=== PATIENT | male | born 1945 | race Caucasian/White ===

== ENCOUNTER 2017-03-01 10:05 | Day surgery (SDC) | payer OTHER ==
[2017-03-01] MEDS ORDERED: Lactated Ringer's 500 ML IV ONE (10:46)
[2017-03-01] MEDS ORDERED: Propofol 10 mg/ml Inj (20 ML) ONE (13:40)
[2017-03-01 13:59] VITALS: TEMP 97; O2SAT 98
[2017-03-01 14:20] VITALS: BP 108/68; PULSE 59; RESP 16
== END 2017-03-01 14:45 | disposition home or self-care (01) ==
LOC: H.ENDO 10:05
PROVIDERS: ATTEND Internal Medicine Gastroenterology
DX: Z85.038 Personal history of other malignant neoplasm of large intestine (principal); E11.9 Type 2 diabetes mellitus without complications; E78.5 Hyperlipidemia, unspecified; I10 Essential (primary) hypertension; K64.8 Other hemorrhoids; K57.30 Diverticulosis of large intestine without perforation or abscess without bleeding
CPT/HCPCS: 82948; G0105; J2001; J2704; J7120

== ENCOUNTER 2018-12-03 06:19 | Inpatient (IN) | payer MEDICARE, MEDICAID ==
[2018-12-03 06:32] VITALS: BMI 31.3
[2018-12-03] MEDS ORDERED: Lactated Ringer's 1,000 ML IV ONE ×3 (07:18→09:00)
[2018-12-03] MEDS ORDERED: Rocuronium 10 mg/ml (5 ml) ONE ×2 (07:25→09:04)
[2018-12-03] MEDS ORDERED: Propofol 10 mg/ml Inj (20 ML) ONE (07:25)
[2018-12-03] MEDS ORDERED: Succinylcholine 200 mg/10 ml Inj IV ONE (07:26)
[2018-12-03] MEDS ORDERED: Lidocaine 4% (Laryng-O-Jet) Kit MM ONE (07:26)
[2018-12-03] MEDS ORDERED: Etomidate 20 mg/10ml Inj IV ONE (07:26)
[2018-12-03] MEDS ORDERED: Phenylephrine 10 mg/ml Inj ONE (07:30)
[2018-12-03] MEDS ORDERED: Dexamethasone 4 mg/1 ml ONE (07:31)
[2018-12-03] MEDS ORDERED: Sodium Chloride 0.9% 20 ML IV ONE (08:00)
[2018-12-03] MEDS ORDERED: Bacitracin Ointment 30 GM TUBE ONE (08:00)
[2018-12-03] MEDS ORDERED: Absorbable Gelatin Sponge Size 12-7 ONE (08:00)
[2018-12-03] MEDS ORDERED: Thrombin Topical 5,000 Int Units Spray Kit ONE (08:01)
[2018-12-03] MEDS ORDERED: Acetaminophen IV 1,000 MG in IV SUPPLIES 100 ML IVPB ONE (08:09)
[2018-12-03] MEDS ORDERED: Midazolam 2 MG/2 ML VIAL ONE (08:12)
[2018-12-03] MEDS: Bupivacaine 0.5% Inj(30mL) ONE ×2 (09:00→09:48)
[2018-12-03] MEDS: EPINEPHrine 1 mg/ml (1:1000) Inj ONE ×2 (09:01→09:48)
[2018-12-03] MEDS: Morphine 5 mg/10 ml preservative-free Inj(Duramorph) ONE ×2 (09:03→09:48)
[2018-12-03] MEDS ORDERED: [UNRECOGNIZED DRUG - OTHER] IV ONE ×2 (09:05→09:48)
[2018-12-03] MEDS ORDERED: SODIUM CHLORIDE IV ONE ×2 (09:05→09:48)
[2018-12-03] MEDS ORDERED: Neostigmine 1:1000 (1 mg/ml) Inj ONE (10:09)
[2018-12-03] MEDS ORDERED: HYDROmorphone 0.5 mg/0.5 ml ISec IVP PRN (10:37)
--- NOTE | 2018-12-03 11:30 | PCM.SURG1 ---
Surgeon's Initial Post Op Note - Surgeon's Notes Surgeon: Shea Breen MD Kiln Puller: Chely Rios PA-C; DON Fernando; Fan Dotson DPM Type of Anesthesia: General Endo Pre-Operative Diagnosis: Right knee advanced OA Operative Findings: see op report Post-Operative Diagnosis: same as pre-op dx Operation Performed: R TKR Specimen/Specimens Removed: right knee bone and soft tissue Estimated Blood Loss: EBL {In ML}: 50 Date of Surgery/Procedure: 12/03/18 Time of Surgery/Procedure: 08:30
[2018-12-03] MEDS ORDERED: oxyCODONE 5 mg Immediate Release Tab PO PRN (11:41)
--- NOTE | 2018-12-03 13:15 | RAD ---
Date of service: 12/03/2018 PROCEDURE: Right Knee Radiographs. HISTORY: s/p right TKR COMPARISON: None. TECHNIQUE: 2 views obtained. FINDINGS: BONES: Status post right total knee replacement. No fracture. Prosthesis grossly intact. JOINTS: Normal. No osteoarthritis. JOINT EFFUSION: None. OTHER FINDINGS: Postoperative surgical changes noted in anterior soft tissues. Surgical ajith noted anteriorly in the midline. IMPRESSION: Status post right TKR.
[2018-12-03] MEDS ORDERED: ceFAZolin 1 GM in Sodium Chloride 0.9% 100 ML IVPB ONE ×2 (14:30→20:30)
--- NOTE | 2018-12-03 15:51 | CP.PCM.CON ---
History of Present Illness - History of Present Illness History of Present Illness: I was asked to see patient by Dr Rodriguez and Dr Breen. Patient seen 12/03/18 1052. Patient is a 73 year old male with HTN, hyperchoelsterolemia atrial fibrillation who presents with oasteoarthritis. He is s/p TKR. He is seen postoperatively and doing well. He has chronic atrial fibrillation and has been on Xarelto. He denies chest pain. Review of Systems - Constitutional Constitutional: absent: As Per HPI, Anorexia, Chills, Daytime Sleepiness, Excessive Sweating, Fatigue, Fever, Frequent Falls, Headache, Increased Appetite, Lethargy, Malaise, Night Sweats, Snoring, Sleep Apnea, Weight Gain, Weight Loss, Weakness, Other - EENT Eyes: absent: As Per HPI, Blind Spots, Blurred Vision, Change in Vision, Decreased Night Vision, Diplopia, Discharge, Dry Eye, Exophthalmos, Floaters, Irritation, Itchy Eyes, Loss of Peripheral Vision, Pain, Photophobia, Requires Corrective Lenses, Sees Flashes, Spots in Vision, Tunnel Vision, Other Visual Disturbances, Loss of Vision, Other Ears: absent: As Per HPI, Decreased Hearing, Ear Discharge, Ear Pain, Tinnitus, Abnormal Hearing, Disequilibrium, Dizziness, Other Nose/Mouth/Throat: absent: As Per HPI, Epistaxis, Nasal Congestion, Nasal Discharge, Nasal Obstruction, Nasal Trauma, Nose Pain, Post Nasal Drip, Sinus Pain, Sinus Pressure, Bleeding Gums, Change in Voice, Dental Pain, Dry Mouth, Dysphagia, Halitosis, Hoarsness, Lip Swelling, Mouth Lesions, Mouth Pain, Odynophagia, Sore Throat, Throat Swelling, Tongue Swelling, Facial Pain, Neck Pain, Neck Mass, Other - Cardiovascular Cardiovascular: absent: As Per HPI, Acrocyanosis, Chest Pain, Chest Pain at Rest, Chest Pain with Activity, Claudication, Diaphoresis, Dyspnea, Dyspnea on Exertion, Edema, Irregular Heart Rhythm, Pain Radiating to Arm/Neck/Jaw, Leg Edema, Leg Ulcers, Lightheadedness, Orthopnea, Palpitations, Paroxysmal N octurnal Dyspnea, Pedal Edema, Radiating Pain, Rapid Heart Rate, Slow Heart Rate, Syncope, Other - Respiratory Respiratory: absent: As Per HPI, Cough, Dyspnea, Hemoptysis, Dyspnea on Exertion, Wheezing, Snoring, Stridor, Pain on Inspiration, Chest Congestion, Excessive Mucous Production, Change in Mucous Color, Pain with Coughing, Other - Gastrointestinal Gastrointestinal: absent: As Per HPI, Abdominal Pain, Belching, Bloating, Change in Bowel Habits, Change in Stool Character, Coffee Ground Emesis, Constipation, Cramping, Diarrhea, Dyspepsia, Dysphagia, Early Satiety, Excessive Flatus, Fecal Incontinence, Heartburn, Hematemesis, Hematochezia, Loose Stools, Melena, Nausea, Odynophagia, Temesmus, Vomiting, Other - Genitourinary Genitourinary: absent: As Per HPI, Change in Urinary Stream, Difficulty Urinating, Dysuria, Flank Pain, Hematuria, Pyuria, Nocturia, Urinary Incon tinence, Urinary Frequency, Urinary Hesitance, Urinary Urgency, Voiding Freq/Small Amts, Freq UTI, Hx Renal/Bladder Calculi, Hx /Renal Surgery, Bladder Distension, Other - Musculoskeletal Musculoskeletal: absent: As Per HPI, Abnormal Gait, Arthralgias, Atrophy, Back Pain, Deformity, Joint Swelling, Limited Range of Motion, Loss of Height, Muscle Cramps, Muscle Weakness, Myalgias, Neck Pain, Numbness, Radiating Pain into Limb, Stiffness, Tingling, Other - Integumentary Integumentary: absent: As Per HPI, Acne, Alopecia, Bleeding Lesions, Change in Hair, Change in Nails, Change in Pigmentation, Changing Lesions, Dry Skin, Erythema, Furuncle, Hirsutism, Lesions, New Lesions, Non-Healing Lesions, Photosensitivity, Pruritus, Rash, Skin Pain, Skin Ulcer, Sores, Striae, Swelling, Unusual Bruising, Wounds, Jaundice, Other - Neurological Neurological: absent: As Per HPI, Abnormal Gait, Abnormal Hearing, Abnormal Movements, Abnormal Speech, Behavioral Changes, Burning Sensations, Confusion, Convulsions, Disequilibrium, Dizziness, Numbness, Focal Weakness, Frequent Falls, Headaches, Lack of Coordination, Loss of Vision, Memory Loss, Paresthesias, Radicular Pain, Restless Legs, Sensory Deficit, Syncope, Tingling, Tremor, Vertigo, Weakness, Other Visual Disturbances, Other - Psychiatric Psychiatric: absent: As Per HPI, Abnormal Sleep Pattern, Anhedonia, Anxiety, Auditory Hallucinations, Behavioral Changes, Change in Appetite, Change in Libido, Confusion, Depression, Difficulty Concentrating, Hallucinations, Homicidal Ideation, Hopelessness, Irritability, Memory Loss, Mood Swings, Panic Attacks, Paranoia, Suicidal Ideation, Visual Hallucinations, Tactile Hallucinations, Other - Endocrine Endocrine: absent: As Per HPI, Change in Body Appearance, Change in Libido, Cold Intolorance, Deepening of Voice, Excessive Sweating, Fatigue, Flushing, Heat Intolorance, Increase in Ring/Shoe/Hat Size, Palpitations, Polydipsia, Polyphagia, Polyuria, Other - Hematologic/Lymphatic Hematologic: absent: As Per HPI, Easy Bleeding, Easy Bruising, Lymphadenopathy, Other Past Patient History - Past Medical History & Family History Past Medical History?: Yes - Past Social History Smoking Status: Never Smoked - CARDIAC Hx Cardiac Disorders: Yes Hx Angina: No Hx Cardia Arrhythmia: Yes Hx Circulatory Problems: No Hx Hypertension: Yes - PULMONARY Hx Respiratory Disorders: No - NEUROLOGICAL Hx Neurological Disorder: No HX Cerebrovascular Accident: No Other/Comment: Rt.LE numbness & tingling - HEENT Hx HEENT Problems: Yes Hx Cataracts: Yes - RENAL Hx Chronic Kidney Disease: No - ENDOCRINE/METABOLIC Hx Endocrine Disorders: Yes Hx Diabetes Insipidus: Yes Hx Diabetes Mellitus Type 2: Yes - HEMATOLOGICAL/ONCOLOGICAL Hx Blood Disorders: No Hx Cancer: Yes (COLON) Hx Chemotherapy: Yes (RADIATION THERAPY) - INTEGUMENTARY Hx Dermatological Problems: No - MUSCULOSKELETAL/RHEUMATOLOGICAL Hx Musculoskeletal Disorders: Yes Hx Arthritis: Yes Hx Falls: Yes Other/Comment: Rt.LE limited joint motion - GASTROINTESTINAL Hx Gastrointestinal Disorders: No Hx Bowel Surgery: Yes Hx Colostomy: Yes (AND REVERSAL) - GENITOURINARY/GYNECOLOGICAL Hx Genitourinary Disorders: No - PSYCHIATRIC Hx Emotional Abuse: No Hx Physical Abuse: No - SURGICAL HISTORY Hx Surgeries: Yes Hx Tonsillectomy: Yes Other/Comment: Colon rectal surgery - ANESTHESIA Hx Anesthesia: Yes Hx Anesthesia Reactions: No Hx Malignant Hyperthermia: No Has any member of the family had a problem w/ anesthesia?: No Meds Allergies/Adverse Reactions: Allergies Allergy/AdvReac Type Severity Reaction Status Date / Time No Known Allergies Allergy Verified 12/03/18 06:32 - Medications Medications: Current Medications Acetaminophen (Tylenol 325mg Tab) 325 mg PO Q4 PRN PRN Reason: pain1-3orfever Amlodipine Besylate (Norvasc) 10 mg PO DAILY [facility] Aspirin (Ecotrin) 81 mg PO DAILY [facility] Celecoxib (Celebrex) 100 mg PO Q12 [facility] Docusate Sodium (Colace) 100 mg PO TID [facility] Last Admin: 12/03/18 14:41 Dose: 100 mg Lactated Ringer's (Lactated Ringer's) 1,000 mls @ 100 mls/hr IV .Q10H [facility] Cefazolin Sodium 1 gm/ Sodium (Chloride) 100 mls @ 100 mls/hr IVPB ONCE ONE; Protocol Stop: 12/03/18 21:29 Isosorbide Mononitrate (Imdur Er) 30 mg PO DAILY [facility] Oxycodone HCl (Oxycodone Immediate Release Tab) 5 mg PO Q4 PRN PRN Reason: pain4-6 Oxycodone HCl (Oxycontin Extended Release Tab) 10 mg PO Q12 [facility] Stop: 12/17/18 21:01 Sitagliptin Phosphate (Januvia) 100 mg PO DAILY [facility] Tramadol HCl (Ultram) 50 mg PO Q4 PRN PRN Reason: pain7-10 Physical Exam - Constitutional Appears: Non-toxic - Head Exam Head Exam: NORMAL INSPECTION - Eye Exam Eye Exam: Normal appearance - ENT Exam ENT Exam: Mucous Membranes Moist - Neck Exam Neck exam: Positive for: Full Rom - Respiratory Exam Respiratory Exam: Decreased Breath Sounds - Cardiovascular Exam Cardiovascular Exam: Irregular Rhythm - GI/Abdominal Exam GI & Abdominal Exam: Normal Bowel Sounds - Rectal Exam Rectal Exam: Deferred - Extremities Exam Extremities exam: Negative for: pedal edema - Back Exam Back exam: NORMAL INSPECTION - Neurological Exam Neurological exam: Alert, Oriented x3 - Psychiatric Exam Psychiatric exam: Normal Affect - Skin Skin Exam: Normal Color Results - Vital Signs Recent Vital Signs: Last Vital Signs Temp 97.4 F L 12/03/18 14:30 Pulse 71 12/03/18 14:30 Resp 18 12/03/18 14:30 BP 141/73 12/03/18 14:30 Pulse Ox 95 12/03/18 14:30 - Labs Labs: Laboratory Results - last 24 hr 12/03/18 12/03/18 12/03/18 06:40 06:47 10:44 POC Glucose (mg/dL) 115 H 157 H Blood Type A POSITIVE Blood Type Confirm Antibody Screen Negative BBK History Checked No verified bt 12/03/18 11:55 POC Glucose (mg/dL) Blood Type Blood Type Confirm A POSITIVE Antibody Screen BBK History Checked Assessment & Plan (1) Chronic atrial fibrillation Assessment and Plan: rate controlled. was on Xarelto as an outpatient recommend restarting if no surgical contraindication. Status: Acute (2) HTN (hypertension) Assessment and Plan: blood pressure control. restart meds. Status: Acute
[2018-12-03] MEDS: Lactated Ringer's 1,000 ML IV SCH ×2 (16:49→20:58)
--- NOTE | 2018-12-03 21:38 | OP ---
PROCEDURE DATE: 12/03/2018 ATTENDING SURGEON: Shea Breen MD BUS OPERATOR: Chely Rios PA-C PREOPERATIVE DIAGNOSIS: Right knee arthritis. POSTOPERATIVE DIAGNOSIS: Right knee arthritis. PROCEDURE: Right total knee replacement. IMPLANTS SIZE: Depuy Attune knee system, size 7 tibial base plate, size 8 femur, 12 mm polyethylene insert, 38 mm patellar button. EBL: 100 mL. COMPLICATIONS: None. ANESTHESIA TYPE: General. HISTORY: The patient with prolonged history of right knee pain progressively getting worse despite extensive conservative management, which included activity modification, injections, anti-inflammatory modification and physical therapy. X-rays had revealed advanced arthritis. Patient was indicated for total knee replacement due to continued pain and limited mobility. I had a detailed discussion with the patient in the office explaining the nature of the surgery, alternatives of surgery, risks and benefits, rehabilitation protocol and surgical markings. Risks of surgery include but not limited to continued pain, lack of motion, infection, vascular injury, DVT / PE, nerve injury including peroneal nerve dysfunction, reflex sympathetic dystrophy, compartment syndrome, unforeseen medical and/or anesthesia complications, limb loss, and even . The patient expressed an understanding of the risks and possible benefits of the procedure, and is also aware of the alternatives to surgery. PROCEDURE: On the day of the surgery, the patient was admitted to pre-operative holding area. A laterality sheet was completed confirming the correct operative site. The correct surgical knee was marked in the holding area and informed consent was signed from the patient. Once again, I reviewed the risks and benefits of the surgery with the patient in detail. These risks include but are not limited to continued pain, lack of motion, infection, vascular injury, DVT / PE, nerve injury including peroneal nerve dysfunction, reflex sympathetic dystrophy, symptomatic hardware, need for further procedure and surgeries, instability, iatrogenic fractures, compartment syndrome, unforeseen medical and/or anesthesia complications, limb loss, and even . The patient expressed an understanding of the risks and possible benefits of the procedure, also aware of the alternatives to surgery and signed the informed consent. The patient was transported to the operating room and placed in the supine position, general anesthesia was obtained. Exam under anesthesia showing 5 degrees of flexion contracture, range of motion from 5 to 120 with 3 degrees of varus alignment. A padded tourniquet was applied to patient's operative thigh and appropriate prophylactic antibiotics were given. The operative leg was draped and prepped in standard sterile manner. Timeout was completed, confirming patient's right knee to be the correct operative site. Using an Esmarch, the extremity was exsanguinated and tourniquet was inflated to 350 mmHg. The surgical incision markings were made using patella border, tibial tubercle, patella and quadriceps tendon. Using a 10 blade, a midline incision was made. Skin dissection was taken until the prepatellar fascia was identified and the corners of the patellar tendon were marked for proper closure at the end of the procedure. Using a fresh 10 blade, a medial parapatellar arthrotomy was performed. The knee was exposed in the standard manner. The deep MCL was elevated for exposure, medial and lateral menisci were removed, ACL and PCL were also transected. The tibia was subluxed anteriorly. Planned tibial cut was made with power saw, using extra-medullary guide, perpendicular to mechanical axis of the tibia. After the cut was made, the alignment was also checked and was found to be appropriate. Tibial cut surface was measured with trial base plate and it was noted that size 7 would provide sufficient coverage without overhang. Tibial component was externally rotated and marked. Next, the knee was placed into 90 degrees of flexion. A drill hole was made within the femoral notch anterior to PCL insertion for placement of intramedullary femoral gregory. Intramedullary femoral gregory was inserted within the femoral canal and planned distal femoral cut was made. After the cut, knee was brought into full extension. Spacer blocks were used to check the extension balancing both in full extension and 30 degrees of flexion. It was found that size 12 mm trial spacer block allowed full extension with symmetric varus and valgus balancing. Next we proceed with Patella resurfacing. Patella width was 25 mm. Using the free-hand technique the arthritic patella surface was resected. Patella was sized using the guide and it was noted that size 38 mm Patella dome button would be appropriate for the patient. Next the size of femoral component was determined using the posterior referencing guide. It was noted that a size 8 femur would be appropriate for this patient without causing any significant notching. A 4 x 1 cutting block was placed and flexion gap balancing was checked. The flexion gap was found to be symmetric to the extension gap. Anterior and posterior condyle, anterior and posterior chamfer cuts were made. Next, appropriate size box cut for femoral component was prepared using the guide. The femoral trial component was impacted onto the distal femur. Appropriate size tibial trial component was also placed on the cut surface of the tibia. Using the drill and punch, keel for tibial implant was prepared. Trial tibial tray was secured onto the tibia using pins. Different size trial polyethylene inserts were secured on to the trial tibial tray to critically assess the following parameters: Full range of motion, extension and flexion gap balancing, mid-flexion stability, anterior and posterior drawer, and patellar tracking. All parameter were found to be satisfactory with size 12 mm insert. All the trial components were removed. Implants were opened on the back table. Cement was mixed and we proceed with cement fixation of the implants. Tibial tray, femoral component and patellar dome button were secured with cement. Polyethylene insert was secured onto the tibial tray using locking mechanism. The knee was reduced and brought into full extension. Cement was allowed to harden until final component fixation. Knee was taken through the final range of motion for stability testing, and found to be satisfactory. 60 cc of custom cocktail mixture was injected into posterior capsule, MCL, LCL, quadriceps tendon, and patellar tendon. Wound was copiously irrigated with sterile antibiotic solution using pulse lavage. Arthrotomy was closed using heavy suture and wound was closed in standard manner. Patient was extubated, transferred to stretcher and taken to the recovery room. Post-operative instructions were provided, physical therapy consult was requested along with DVT prophylaxis and appropriate pain medications. During this procedure, I was assisted by Chely Rios PA-C, who assisted in positioning the patient on the operating room table as well as transferring the patient from the operating room table to the recovery room stretcher. In addition, Chely Rios PA-C assisted me during the actual operative procedure by positioning, protecting critical neurovascular structures, exposure of the joint, and proper positioning of the implants. The presence of Chely Rios PA-C as my operative escrow assistant was medically necessary to ensure the utmost safety of the patient in the pre, intra-, and post-operative periods. Shea Breen MD
[2018-12-03] MEDS: oxyCODONE 10 mg ER Tab (oxyCONTIN) PO SCH (22:16)
[2018-12-04 06:19] LABS: BASO % 0.1 % (0.0-2.0); EOS % 0.1 % (0.0-4.0); LYMPH # 0.6 K/uL (1.0-4.3); MEAN CELL VOLUME 89.7 fl (80.0-94.0); MEAN CORPUSCULAR HEMOGLOBIN 30.2 pg (27.0-31.0); MEAN CORPUSCULAR HGB CONC 33.6 g/dL (33.0-37.0); MEAN PLATELET VOLUME 8.8 fl (7.2-11.7); MONO # 1.3 K/uL (0.0-0.8); MONO % 14.6 % (0.0-10.0); NEUT # 6.7 K/uL (1.8-7.0); NEUT % 78.2 % (50.0-75.0); PLATELET COUNT 152 K/uL (130-400); RED CELL DISTRIBUTION WIDTH 13.1 % (11.5-14.5); WHITE BLOOD COUNT 8.6 K/uL (4.8-10.8)
[2018-12-04 06:26] LABS: BLOOD UREA NITROGEN 17 mg/dl (9-20); CALCIUM 8.3 mg/dL (8.4-10.2); GFR NON-AFRICAN AMERICAN > 60
[2018-12-04] MEDS: Lactated Ringer's 1,000 ML IV SCH ×2 (06:58→17:22)
[2018-12-04] MEDS: oxyCODONE 10 mg ER Tab (oxyCONTIN) PO SCH ×2 (08:48→21:24)
[2018-12-04 08:52] LABS: LYMPHOCYTE 8 % (20-50); MONOCYTE 12 % (0-10); NEUTROPHIL 80 % (42-75); PLATELET ESTIMATE NORMAL (NORMAL); TOTAL CELLS COUNTED 100
[2018-12-04 08:53] LABS: ANISOCYTOSIS SLIGHT; LARGE PLATELETS PRESENT; OVALOCYTES SLIGHT
--- NOTE | 2018-12-04 23:33 | CP.PCM.HP ---
History of Present Illness - History of Present Illness History of Present Illness: This is a 73 y/o male admitted for schedled right TKR. Past Patient History - Past Medical History & Family History Past Medical History?: Yes - Past Social History Smoking Status: Never Smoked - CARDIAC Hx Cardiac Disorders: Yes Hx Angina: No Hx Cardia Arrhythmia: Yes Hx Circulatory Problems: No Hx Hypertension: Yes - PULMONARY Hx Respiratory Disorders: No - NEUROLOGICAL Hx Neurological Disorder: No HX Cerebrovascular Accident: No Other/Comment: Rt.LE numbness & tingling - HEENT Hx HEENT Problems: Yes Hx Cataracts: Yes - RENAL Hx Chronic Kidney Disease: No - ENDOCRINE/METABOLIC Hx Endocrine Disorders: Yes Hx Diabetes Insipidus: Yes Hx Diabetes Mellitus Type 2: Yes - HEMATOLOGICAL/ONCOLOGICAL Hx Blood Disorders: No Hx Cancer: Yes (COLON) Hx Chemotherapy: Yes (RADIATION THERAPY) - INTEGUMENTARY Hx Dermatological Problems: No - MUSCULOSKELETAL/RHEUMATOLOGICAL Hx Musculoskeletal Disorders: Yes Hx Arthritis: Yes Hx Falls: Yes Other/Comment: Rt.LE limited joint motion - GASTROINTESTINAL Hx Gastrointestinal Disorders: No Hx Bowel Surgery: Yes Hx Colostomy: Yes (AND REVERSAL) - GENITOURINARY/GYNECOLOGICAL Hx Genitourinary Disorders: No - PSYCHIATRIC Hx Emotional Abuse: No Hx Physical Abuse: No - SURGICAL HISTORY Hx Surgeries: Yes Hx Tonsillectomy: Yes Other/Comment: Colon rectal surgery - ANESTHESIA Hx Anesthesia: Yes Hx Anesthesia Reactions: No Hx Malignant Hyperthermia: No Has any member of the family had a problem w/ anesthesia?: No Meds Allergies/Adverse Reactions: Allergies Allergy/AdvReac Type Severity Reaction Status Date / Time No Known Allergies Allergy Verified 12/03/18 06:32 Results - Vital Signs Recent Vital Signs: Last Vital Signs Temp 98.2 F 12/04/18 15:53 Pulse 8 L 12/04/18 15:53 Resp 20 12/04/18 15:53 BP 155/66 H 12/04/18 15:53 Pulse Ox 93 L 12/04/18 15:53 - Labs Result Diagrams: 12/04/18 05:50 12/04/18 05:50 Labs: Laboratory Results - last 24 hr 12/04/18 12/04/18 12/04/18 05:22 05:50 05:50 WBC 8.6 RBC 3.30 L Hgb 10.0 L Hct 29.6 L MCV 89.7 MCH 30.2 MCHC 33.6 RDW 13.1 Plt Count 152 MPV 8.8 Neut % (Auto) 78.2 H Lymph % (Auto) 7.0 L Kingman % (Auto) 14.6 H Eos % (Auto) 0.1 Baso % (Auto) 0.1 Neut # (Auto) 6.7 Lymph # (Auto) 0.6 L Kingman # (Auto) 1.3 H Eos # (Auto) 0.0 Baso # (Auto) 0.0 Neutrophils % (Manual) 80 H Lymphocytes % (Manual) 8 L Monocytes % (Manual) 12 H Platelet Estimate Normal Large Platelets Present Anisocytosis (manual) Slight Ovalocytes Slight Sodium 134 Potassium 4.2 Chloride 103 Carbon Dioxide 25 Anion Gap 10 BUN 17 Creatinine 1.1 Est GFR ( Amer) > 60 Est GFR (Non-Af Amer) > 60 POC Glucose (mg/dL) 125 H Random Glucose 112 H Calcium 8.3 L 12/04/18 12/04/18 12/04/18 11:07 15:46 21:31 WBC RBC Hgb Hct MCV MCH MCHC RDW Plt Count MPV Neut % (Auto) Lymph % (Auto) Kingman % (Auto) Eos % (Auto) Baso % (Auto) Neut # (Auto) Lymph # (Auto) Kingman # (Auto) Eos # (Auto) Baso # (Auto) Neutrophils % (Manual) Lymphocytes % (Manual) Monocytes % (Manual) Platelet Estimate Large Platelets Anisocytosis (manual) Ovalocytes Sodium Potassium Chloride Carbon Dioxide Anion Gap BUN Creatinine Est GFR ( Amer) Est GFR (Non-Af Amer) POC Glucose (mg/dL) 186 H 156 H 138 H Random Glucose Calcium
[2018-12-05 06:46] LABS: BASO % 0.4 % (0.0-2.0); EOS # 0.1 K/uL (0.0-0.7); EOS % 1.1 % (0.0-4.0); HEMOGLOBIN 8.8 g/dL (12.0-18.0); LYMPH # 0.7 K/uL (1.0-4.3); LYMPH % 10.6 % (20.0-40.0); MEAN CORPUSCULAR HGB CONC 34.5 g/dL (33.0-37.0); MEAN PLATELET VOLUME 9.4 fl (7.2-11.7); MONO # 1.1 K/uL (0.0-0.8); MONO % 16.5 % (0.0-10.0); NEUT # 4.7 K/uL (1.8-7.0); NEUT % 71.4 % (50.0-75.0); RBC 2.83 Mil/uL (4.40-5.90); RED CELL DISTRIBUTION WIDTH 13.4 % (11.5-14.5); WHITE BLOOD COUNT 6.5 K/uL (4.8-10.8)
[2018-12-05 06:58] LABS: BLOOD UREA NITROGEN 16 mg/dl (9-20); CALCIUM 8.2 mg/dL (8.4-10.2); GFR NON-AFRICAN AMERICAN > 60
[2018-12-05 07:52] VITALS: BP 143/69; PULSE 69; RESP 20; TEMP 98.1; O2SAT 96
[2018-12-05] MEDS: oxyCODONE 10 mg ER Tab (oxyCONTIN) PO SCH (09:41)
--- NOTE | 2018-12-05 11:51 | CP.PCM.PN ---
Subjective - Date & Time of Evaluation Date of Evaluation: 12/05/18 Time of Evaluation: 10:30 - Subjective Subjective: Patient seen and examined at bedside comfortable. Pain well controlled. No acute events overnight. Tolerating PT well. Denies CP/SOB/fever/dizziness. Objective - Vital Signs/Intake and Output Vital Signs (last 24 hours): Temp Pulse Resp BP Pulse Ox 98.1 F 69 20 143/69 96 12/05/18 07:51 12/05/18 09:43 12/05/18 07:51 12/05/18 09:43 12/05/18 07:51 - Medications Medications: Current Medications Acetaminophen (Tylenol 325mg Tab) 325 mg PO Q4 PRN PRN Reason: pain1-3orfever Amlodipine Besylate (Norvasc) 10 mg PO DAILY [facility] Last Admin: 12/05/18 09:43 Dose: 10 mg Aspirin (Ecotrin) 81 mg PO DAILY [facility] Last Admin: 12/05/18 09:42 Dose: 81 mg Celecoxib (Celebrex) 100 mg PO Q12 [facility] Last Admin: 12/05/18 09:43 Dose: 100 mg Docusate Sodium (Colace) 100 mg PO TID [facility] Last Admin: 12/05/18 09:42 Dose: 100 mg Lactated Ringer's (Lactated Ringer's) 1,000 mls @ 100 mls/hr IV .Q10H [facility] Last Admin: 12/04/18 17:22 Dose: 100 mls/hr Isosorbide Mononitrate (Imdur Er) 30 mg PO DAILY [facility] Last Admin: 12/05/18 09:43 Dose: 30 mg Oxycodone HCl (Oxycodone Immediate Release Tab) 5 mg PO Q4 PRN PRN Reason: pain4-6 Oxycodone HCl (Oxycontin Extended Release Tab) 10 mg PO Q12 [facility] Stop: 12/17/18 21:01 Last Admin: 12/05/18 09:41 Dose: 10 mg Rivaroxaban (Xarelto) 20 mg PO QPM [facility]; Protocol Last Admin: 12/04/18 17:19 Dose: 20 mg Sitagliptin Phosphate (Januvia) 100 mg PO DAILY [facility] Last Admin: 12/05/18 09:42 Dose: 100 mg Tramadol HCl (Ultram) 50 mg PO Q4 PRN PRN Reason: pain7-10 Last Admin: 12/04/18 14:32 Dose: 50 mg - Labs Labs: 12/05/18 05:40 12/05/18 05:40 - Extremities Exam Additional comments: RLE: Dressings CDI FRITZ CDI Incision CDI with ajith mild diffuse swelling, no drainage sensation intact sp/dp/tn motor intact EHL/FHL/TA/G pedal pulse intact calves soft NT b/l Assessment and Plan (1) Osteoarthritis of right knee Assessment & Plan: POD#2 s/p R TKA -PT/OT -Dressings changed, FRITZ removed -ice, elevate -orthopedically stable for d/c to home -f/u in office within 7-10 days, call for appt -d/w Dr. Breen who agrees with above Status: Acute
== END 2018-12-05 17:51 | disposition home or self-care (01) | DRG 470 ==
LOC: H.OPSURG 06:19 → H.MEDSURG1 10:32
PROVIDERS: ADMIT Family Medicine; ATTEND Family Medicine
PROC: 0SRC0J9 Replacement of Right Knee Joint with Synthetic Substitute, Cemented, Open Approach (ICD-10-PCS; principal; 2018-12-03 07:45)
DX: M17.11 Unilateral primary osteoarthritis, right knee (principal); I48.2 Chronic atrial fibrillation; I10 Essential (primary) hypertension; E78.00 Pure hypercholesterolemia, unspecified; M24.561 Contracture, right knee; E11.9 Type 2 diabetes mellitus without complications